=== PATIENT | male | born 1970 | race Caucasian/White ===

== ENCOUNTER 2019-02-23 11:09 | Emergency (ER) | payer OTHER ==
[~2019-02-23] VITALS: Ht 180.3 cm; Wt 99.1 kg
[2019-02-23 11:16] VITALS: BP 165/100
--- NOTE | 2019-02-23 11:20 | NUR ---
PT AMBULATED TO LOBBY AT THIS TIME, VSS.
--- NOTE | 2019-02-23 11:43 | NUR ---
C/O RIGHT LOWER MOLAR PAIN X 3 DAYS---RELIEVED WITH IBUPROFEN INITIALLY BUT UNABLE TO QUENCH PAIN AT THIS TIME---NO DENTAL APPT OF YET FULL CLEAR SPEECH, NO DROOLING NOTED---DENTAL PAIN RADIATING TO HEAD CAUSING THROBBING HEADACHE
--- NOTE | 2019-02-23 11:45 | NUR ---
MD SPEAKING WITH PT
[2019-02-23 12:50] VITALS: BP 155/90
== END 2019-02-23 12:45 | disposition home or self-care (01) ==
LOC: MED 11:09
DX: K12.1 Other forms of stomatitis (principal); R03.0 Elevated blood-pressure reading, without diagnosis of hypertension
CPT/HCPCS: 99283